=== PATIENT | female | born 1995 | race American Indian/Alaskan Native ===

== ENCOUNTER 2017-04-26 21:57 | Outpatient (CLI) | payer MEDICAID ==
[2017-04-26 22:23] VITALS: BP 115/68
[2017-04-26] MEDS ORDERED: LACTATED RINGERS 500 ML IV ONE (23:04)
== END 2017-04-26 23:32 | disposition home or self-care (01) ==
LOC: TRG 21:57
PROVIDERS: ATTEND Obstetrics & Gynecology
DX: O47.03 False labor before 37 completed weeks of gestation, third trimester (principal); Z3A.36 36 weeks gestation of pregnancy
CPT/HCPCS: J7120

== ENCOUNTER 2017-05-22 12:29 | Inpatient (IN) | payer MEDICAID ==
[2017-05-22] MEDS ORDERED: ePHEDrine SULFATE IV PRN ×2 (13:55→21:02)
[2017-05-22] MEDS ORDERED: MINERAL OIL PO PRN (13:55)
[2017-05-22] MEDS ORDERED: SUBLIMAZE IV PRN (13:55)
[2017-05-22] MEDS ORDERED: NARCAN 0.4 MG/1 ML IV PRN (13:55)
[2017-05-22] MEDS ORDERED: BRETHINE SUB-Q PRN (13:55)
[2017-05-22] MEDS ORDERED: PITOCin/NS 20 UNIT/1000ML DRIP 20 UNITS/1,000 ML BAG IV SCH ×2 (14:00→23:45)
[2017-05-22] MEDS ORDERED: PITOCin/NS 30 UNIT/500ML 30 UNITS/500 ML BAG IV SCH ×2 (14:00)
--- NOTE | 2017-05-22 14:01 | History and Physical Report ---
History of Present Illness Date of examination: 05/22/17 Chief complaint: Labor History of present illness: Pt is a 21yo BF EDC 05/19/17; EGA 40 3/7 weeks presents to L&D complaining of RUC's q 4-5 mins. She received care at [facility] and course has bben unremarkable. She has a history of Preeclampsia and hemorrhage with her previous , however, records are not available and GBS is unknown. Past History Past Medical History: no pertinent history Past Surgical History: no surgical history Social history: no significant social history, single - Obstetrical History Expected Date of Delivery: 05/19/17 Actual Gestation: 40 Week(s) 3 Day(s) : 2 Medications and Allergies Allergies Allergy/AdvReac Type Severity Reaction Status Date / Time No Known Allergies Allergy Unverified 04/26/17 23:03 Review of Systems All systems: negative - Vital Signs Vital signs: Vital Signs Pulse BP 85 123/70 05/22/17 12:47 05/22/17 12:47 Temp Pulse Resp BP Pulse Ox 97.1 F L 81 16 121/81 99 05/22/17 12:56 05/22/17 13:53 05/22/17 12:56 05/22/17 13:46 05/22/17 13:53 - Physical Exam Breasts: Positive: deferred Cardiovascular: Regular rate Lungs: Positive: Clear to auscultation Abdomen: Positive: normal appearance Genitourinary (Female): Positive: normal external genitalia Uterus: Positive: enlarged Extremities: Positive: normal - Obstetrical FHR: category 1 Uterine Contraction Monitor Mode: External Cervical Dilatation: 4 Cervical Effacement Percentage: 90 station: -2 Uterine Contraction Pattern: Regular Uterine Tone Measurement Phase: Contraction Uterine Contraction Intensity: Moderate Results Result Diagrams: 05/22/17 14:42 All other labs normal. Assessment and Plan - Patient Problems (1) 40 weeks gestation of Onset Date: 05/22/17 Current Visit: Yes Status: Acute Plan to address problem: A: IUP @ 40 3/7 weeks in labor Unknown GBS P: Admit to L&D for expectant vaginal delivery IV Ampicillin Obtain records
[2017-05-22] MEDS ORDERED: BRETHINE IVP PRN (14:12)
[2017-05-22] MEDS ORDERED: XYLOCAINE 2% INFILTRATI ONE (15:00)
[2017-05-22 15:01] LABS: Hematocrit 34.4 % (30.3-42.9); Hemoglobin 11.8 gm/dl (10.1-14.3); Mean Corpuscular HGB Conc 34 % (30-34); Mean Corpuscular Hemoglobin 30 pg (28-32); Mean Corpuscular Volume 86 fl (79-97); Platelet Count 108 K/mm3 (140-440); Red Blood Count 4.01 M/mm3 (3.65-5.03); Red Cell Distribution Width 15.1 % (13.2-15.2); White Blood Count 5.9 K/mm3 (4.5-11.0)
[2017-05-22] MEDS: STADOL IV PRN ×2 (15:24→17:45)
[2017-05-22] MEDS: LACTATED RINGERS 1,000 ML IV SCH ×2 (15:26→19:48)
[2017-05-22] MEDS ORDERED: POLYCILLIN/NS 2 GM/100 ML 2 GM/100 ML BAG IV ONE (18:23)
[2017-05-22] MEDS ORDERED: ePHEDrine SULFATE ONE (20:02)
--- NOTE | 2017-05-22 21:02 | Anesthesia Consultation ---
Anesthesia Consult and Med Hx Date of service: 05/22/17 - Airway Anesthetic Teeth Evaluation: Good ROM Head & Neck: Adequate Mental/Hyoid Distance: Adequate Intubation Access Assessment: Probably Good - Pre-Operative Health Status ASA Pre-Surgery Classification: ASA2, Emergency Proposed Anesthetic Plan: Epidural, Spinal - Pulmonary Hx Asthma: No COPD: No Hx Pneumonia: No - Cardiovascular System Hx Hypertension: No - Central Nervous System Hx Seizures: No Hx Psychiatric Problems: No - Endocrine Hx Renal Disease: No Hx End Stage Renal Disease: No Hx Hypothyroidism: No Hx Hyperthyroidism: No - Hematic Hx Anemia: Yes (Iron Pills) Hx Sickle Cell Disease: No - Other Systems Hx Alcohol Use: No - Additional Comments Anesthesia Medical History Comments: Mild thrombocytopenia (109K ). No prior history. Platelet count from 05/22/17 at 14:30
[2017-05-22] MEDS ORDERED: fentaNYL-BUPIV 2 MCG/ML-0.125% 200 MCG/100 ML BAG EPIDURAL SCH (22:00)
[2017-05-22] MEDS ORDERED: CYTOTEC ONE (22:38)
--- NOTE | 2017-05-22 22:58 | Procedure Note ---
OB Delivery Note - Delivery Date of Delivery: 05/22/17 Surgeon: JAKE MARCELO Estimated blood loss: 100cc - Vaginal Delivery presentation: vertex Delivery position: OA Intrapartum events: none Delivery induction: oxytocin Delivery augmentation: rupture of membranes Delivery monitor: external FHT, external uterine Route of delivery: Delivery placenta: manual, uterine exploration Delivery cord: 3 umbilical vessels Episiotomy: none Delivery laceration: none Anesthesia: epidural Delivery comments: delivered OA and placed on Mom's chest for [id number] bonding and delayed cord clamping. - Infant A at 1 minute: 8 at 5 minutes: 9 Gender: Male (3246gms)
[2017-05-22] MEDS ORDERED: LANSINOH TP PRN (23:02)
[2017-05-22] MEDS ORDERED: ZOFRAN IV PRN (23:02)
[2017-05-22] MEDS ORDERED: DULCOLAX PR PRN (23:02)
[2017-05-22] MEDS ORDERED: BENADRYL PO PRN (23:02)
[2017-05-22] MEDS ORDERED: PHENERGAN PO PRN (23:02)
[2017-05-22] MEDS ORDERED: PHENERGAN PR PRN (23:02)
[2017-05-22] MEDS ORDERED: TYLENOL PO PRN (23:02)
[2017-05-22] MEDS ORDERED: TUCKS PAD TP PRN (23:02)
[2017-05-22] MEDS ORDERED: MILK OF MAGNESIA PO PRN (23:02)
[2017-05-22] MEDS ORDERED: SODIUM CHLORIDE FLUSH SYRINGE 10 ML IV NR (23:45)
[2017-05-22] MEDS: MOTRIN PO SCH (23:50)
[2017-05-23] MEDS: MOTRIN PO SCH ×3 (05:38→18:07)
[2017-05-23] MEDS: NORCO 5/325 PO PRN ×2 (05:47→22:00)
[2017-05-23] MEDS ORDERED: M-M-R II VACCINE SUB-Q ONE (06:00)
[2017-05-23] MEDS ORDERED: BOOSTRIX IM ONE (06:00)
[2017-05-23] MEDS: COLACE PO SCH ×2 (09:39→21:27)
[2017-05-23] MEDS: FEOSOL PO SCH ×2 (09:39→21:27)
[2017-05-23] MEDS: PRENATAL VITAMIN PO SCH (09:39)
--- NOTE | 2017-05-23 09:39 | Progress Note ---
Assessment and Plan - Patient Problems (1) 40 weeks gestation of Onset Date: 05/22/17 Current Visit: Yes Status: Resolved (2) (normal spontaneous vaginal delivery) Onset Date: 05/23/17 Current Visit: Yes Status: Resolved Plan to address problem: A: S/P - PPD #1 Doing well P: May go home tomorrow. Subjective - Subjective Date of service: 05/23/17 Principal diagnosis: s/p - PPD #1 Interval history: Pt is feeling well without complaints. Bleeding improved. Patient reports: appetite normal, voiding normally, pain well controlled, ambulating normally [place]: doing well Objective - Vital Signs Latest vital signs: Vital Signs Temp Pulse Pulse Pulse Resp BP BP 05/23/17 08:38 98.0 F 80 20 108/54 05/23/17 00:45 98.3 F 72 16 117/74 05/23/17 00:17 78 117/78 05/23/17 00:02 83 125/80 05/22/17 23:47 88 129/88 05/22/17 23:32 87 130/89 05/22/17 23:17 88 126/89 05/22/17 23:02 95 H 119/82 05/22/17 22:47 88 119/76 05/22/17 22:33 93 H 05/22/17 22:28 89 05/22/17 22:23 84 05/22/17 22:18 85 136/81 05/22/17 22:13 97 H 05/22/17 22:08 85 05/22/17 22:03 83 143/82 05/22/17 21:58 92 H 05/22/17 21:53 81 05/22/17 21:48 84 05/22/17 21:43 79 142/82 05/22/17 21:38 81 124/72 05/22/17 21:37 82 05/22/17 21:33 78 132/75 05/22/17 21:28 76 134/79 05/22/17 21:23 75 136/78 05/22/17 21:17 82 121/58 05/22/17 21:13 86 123/60 05/22/17 21:12 85 05/22/17 21:08 78 136/78 05/22/17 21:03 85 05/22/17 21:02 82 119/60 05/22/17 21:00 73 135/64 05/22/17 20:58 77 137/74 05/22/17 20:57 84 109/71 05/22/17 20:54 76 152/84 05/22/17 20:53 89 05/22/17 20:52 86 116/75 05/22/17 20:50 78 130/78 05/22/17 20:49 52 L 05/22/17 20:48 85 112/70 05/22/17 20:46 82 115/70 05/22/17 20:44 77 121/71 05/22/17 20:43 83 05/22/17 20:42 83 131/80 05/22/17 20:40 88 123/79 05/22/17 20:38 86 123/74 05/22/17 20:33 88 05/22/17 20:28 90 05/22/17 20:23 90 05/22/17 20:18 80 05/22/17 20:17 83 127/69 05/22/17 20:13 90 05/22/17 20:08 89 05/22/17 20:03 87 05/22/17 19:58 80 05/22/17 19:53 83 05/22/17 19:48 84 05/22/17 19:46 88 116/82 05/22/17 19:18 72 126/75 05/22/17 19:13 98.0 F 72 20 126/75 05/22/17 18:48 74 116/69 05/22/17 18:16 75 112/61 05/22/17 17:46 74 107/68 05/22/17 17:38 80 05/22/17 17:33 87 120/79 05/22/17 17:30 45 L 05/22/17 17:28 88 05/22/17 17:26 98.8 F 68 18 128/66 05/22/17 17:23 91 H 05/22/17 17:18 82 120/78 05/22/17 17:13 84 05/22/17 17:12 83 05/22/17 17:05 80 05/22/17 17:03 72 122/80 05/22/17 17:00 77 05/22/17 16:55 71 05/22/17 16:52 94 H 05/22/17 16:50 66 05/22/17 16:48 79 122/81 17 16:45 83 05/22/17 16:40 75 17 16:35 76 17 16:30 72 1517 16:26 81 17 16:25 91 H 17 16:20 76 05/22/17 16:17 75 122/70 05/22/17 16:15 85 05/22/17 16:11 81 05/22/17 16:10 81 05/22/17 16:05 86 05/22/17 16:00 79 05/22/17 15:55 91 H 05/22/17 15:54 16 05/22/17 15:50 84 05/22/17 15:47 88 119/70 05/22/17 15:45 81 05/22/17 15:40 84 05/22/17 15:35 86 05/22/17 15:30 97 H 05/22/17 15:25 88 05/22/17 15:24 90 16 05/22/17 15:20 86 05/22/17 15:17 71 128/77 05/22/17 15:15 80 05/22/17 15:10 87 05/22/17 15:05 85 105/74 05/22/17 15:00 89 05/22/17 14:58 85 109/70 05/22/17 14:44 83 05/22/17 14:18 83 05/22/17 14:15 82 116/82 05/22/17 14:13 82 05/22/17 14:08 83 05/22/17 14:05 78 114/75 05/22/17 14:03 78 05/22/17 13:58 91 H 05/22/17 13:55 80 121/80 05/22/17 13:53 81 05/22/17 13:48 89 05/22/17 13:46 90 121/81 1517 13:43 88 17 13:38 82 17 13:36 85 120/81 1517 13:33 81 17 13:28 92 H 17 13:25 78 116/76 07/15/17 13:23 89 07/15/17 13:18 78 05/22/17 13:13 84 05/22/17 13:08 76 05/22/17 13:03 79 05/22/17 12:58 87 05/22/17 12:56 97.1 F L 86 16 123/70 05/22/17 12:53 82 05/22/17 12:52 89 05/22/17 12:48 84 05/22/17 12:47 85 123/70 Pulse Ox 05/23/17 08:38 05/23/17 00:45 05/23/17 00:17 05/23/17 00:02 05/22/17 23:47 05/22/17 23:32 05/22/17 23:17 05/22/17 23:02 05/22/17 22:47 05/22/17 22:33 99 05/22/17 22:28 97 05/22/17 22:23 99 05/22/17 22:18 100 05/22/17 22:13 100 05/22/17 22:08 100 05/22/17 22:03 100 05/22/17 21:58 100 05/22/17 21:53 98 05/22/17 21:48 99 05/22/17 21:43 100 05/22/17 21:38 05/22/17 21:37 99 05/22/17 21:33 99 05/22/17 21:28 100 05/22/17 21:23 100 05/22/17 21:17 99 05/22/17 21:13 05/22/17 21:12 100 05/22/17 21:08 100 05/22/17 21:03 100 05/22/17 21:02 05/22/17 21:00 05/22/17 20:58 99 05/22/17 20:57 05/22/17 20:54 05/22/17 20:53 100 05/22/17 20:52 05/22/17 20:50 05/22/17 20:49 71 L 05/22/17 20:48 100 05/22/17 20:46 05/22/17 20:44 05/22/17 20:43 100 05/22/17 20:42 05/22/17 20:40 05/22/17 20:38 99 05/22/17 20:33 100 05/22/17 20:28 100 05/22/17 20:23 100 05/22/17 20:18 100 05/22/17 20:17 05/22/17 20:13 99 05/22/17 20:08 100 05/22/17 20:03 99 05/22/17 19:58 100 05/22/17 19:53 99 05/22/17 19:48 98 05/22/17 19:46 05/22/17 19:18 05/22/17 19:13 05/22/17 18:48 05/22/17 18:16 05/22/17 17:46 05/22/17 17:38 98 05/22/17 17:33 99 05/22/17 17:30 93 05/22/17 17:28 96 05/22/17 17:26 05/22/17 17:23 97 05/22/17 17:18 99 05/22/17 17:13 98 05/22/17 17:12 74 L 05/22/17 17:05 98 05/22/17 17:03 05/22/17 17:00 99 05/22/17 16:55 99 05/22/17 16:52 94 05/22/17 16:50 100 05/22/17 16:48 05/22/17 16:45 98 05/22/17 16:40 98 05/22/17 16:35 96 05/22/17 16:30 99 05/22/17 16:26 92 05/22/17 16:25 99 05/22/17 16:20 95 05/22/17 16:17 05/22/17 16:15 96 05/22/17 16:11 94 05/22/17 16:10 97 05/22/17 16:05 97 05/22/17 16:00 95 17 15:55 96 17 15:54 05/22/17 15:50 98 17 15:47 94 17 15:45 97 17 15:40 96 17 15:35 96 17 15:30 97 17 15:25 96 17 15:24 94 07/15/17 15:20 98 05/22/17 15:17 05/22/17 15:15 100 05/22/17 15:10 99 05/22/17 15:05 100 05/22/17 15:00 99 05/22/17 14:58 05/22/17 14:44 100 05/22/17 14:18 99 05/22/17 14:15 05/22/17 14:13 99 05/22/17 14:08 99 05/22/17 14:05 05/22/17 14:03 100 05/22/17 13:58 0 L 05/22/17 13:55 05/22/17 13:53 99 05/22/17 13:48 100 05/22/17 13:46 05/22/17 13:43 100 05/22/17 13:38 99 05/22/17 13:36 05/22/17 13:33 99 05/22/17 13:28 99 05/22/17 13:25 05/22/17 13:23 99 05/22/17 13:18 100 05/22/17 13:13 99 05/22/17 13:08 98 05/22/17 13:03 97 05/22/17 12:58 98 05/22/17 12:56 98 05/22/17 12:53 98 05/22/17 12:52 94 05/22/17 12:48 96 05/22/17 12:47 Intake and Output 05/22/17 05/23/17 05/23/17 22:59 06:59 14:59 Intake Total 1000 120 Output Total 800 Balance 1000 -680 Intake: IV 1000 Lactated Ringers 1,000 ml 1000 @ 125 mls/hr IV DIRECT SYL Rx#:[id number] Oral 120 Output: Urine 800 Void 800 Other: Total, Intake Amount 120 Total, Output Amount 800 Estimated Blood Loss 100 - Exam Breasts: Present: deferred Cardiovascular: Present: Regular rate Lungs: Present: Clear to auscultation Abdomen: Present: normal appearance, soft Uterus: Present: normal, firm, fundal height below umbilicus Extremities: Present: normal - Labs Labs: Abnormal lab results 05/22/17 Range/Units 14:42 Plt Count 108 L (140-440) K/mm3 Laboratory Tests 05/22/17 05/22/17 14:38 14:42 WBC 5.9 RBC 4.01 Hgb 11.8 Hct 34.4 MCV 86 MCH 30 MCHC 34 RDW 15.1 Plt Count 108 L Blood Type AB POSITIVE Antibody Screen TNR KELIN Antibody Screen Negative
[2017-05-23 10:55] LABS: Hematocrit 29.5 % (30.3-42.9)
--- NOTE | 2017-05-23 11:29 | Discharge Summary ---
Providers - Providers Date of Admission: 05/22/17 12:30 Date of discharge: 05/24/17 Attending physician: JAKE MARCELO Primary care physician: JAKE MARCELO Hospitalization Reason for admission: active labor, IUP at term Delivery: Episiotomy: none Laceration: none Other procedures: none complications: none Discharge diagnosis: IUP at term delivered [place] baby: male Hospital course: Unremarkable. Condition at discharge: Good Disposition: DC-01 TO HOME OR SELFCARE - Discharge Diagnoses (1) 40 weeks gestation of Status: Resolved (2) (normal spontaneous vaginal delivery) Status: Resolved Plan - Discharge Medications Prescriptions: Ferrous Sulfate [Feosol 325 MG tab] 325 mg PO BID #60 tablet Ibuprofen [Motrin 600 MG tab] 600 mg PO Q6H #30 tablet Vit-Fe Fumar-FA [ Vitamin] 1 each PO QDAY #30 tablet - Provider Discharge Summary Activity: routine, no sex for 6 weeks, no heavy lifting 4 weeks, no strenuous exercise Diet: routine Instructions: routine Additional instructions: [] Smoking cessation referral if applicable(refer to patient education folder for contact #) [] Refer to [facility] Booklet Call your doctor immediately for: * Fever > 100.5 * Heavy vaginal bleeding ( >1 pad per hour) * Severe persistent headache * Shortness of breath * Reddened, hot, painful area to leg or breast * Drainage or odor from incision. * Keep incision clean and dry at all times and follow doctor's instructions regarding bathing/showering - Follow up plan Follow up: JAKE MARCELO MD [Primary Care Provider] - 6 Weeks
[2017-05-23 15:49] LABS: HIV-1 Antigen p24 Non React (Non React); HIVR-1/2 Ab Non React (Non React)
[2017-05-24] MEDS: MOTRIN PO SCH ×3 (05:35→12:33)
[2017-05-24] MEDS: PRENATAL VITAMIN PO SCH (09:59)
[2017-05-24] MEDS: FEOSOL PO SCH (09:59)
[2017-05-24 17:31] VITALS: BP 108/58
== END 2017-05-24 18:00 | disposition home or self-care (01) | DRG 775 ==
LOC: TRG 12:29 → LD 12:29 → TRG 12:30 → LD 12:30 → OB 05-23 00:46
PROVIDERS: ADMIT Obstetrics & Gynecology; ATTEND Obstetrics & Gynecology
PROC: 10E0XZZ Delivery of Products of Conception, External Approach (ICD-10-PCS; principal; 2017-05-22)
PROC: 3E033VJ Introduction of Other Hormone into Peripheral Vein, Percutaneous Approach (ICD-10-PCS; 2017-05-22)
PROC: 00HU33Z Insertion of Infusion Device into Spinal Canal, Percutaneous Approach (ICD-10-PCS; 2017-05-22)
PROC: 3E0R3CZ (ICD-10-PCS; 2017-05-22)
DX: O80 Encounter for full-term uncomplicated delivery (principal); Z3A.40 40 weeks gestation of pregnancy; Z37.0 Single live birth
CPT/HCPCS: 36415; 85014; 85018; 85027; 86592; 86706; 86762; 86850; 86900; 86901; 87806; 90471; 90715; 99211; A6250; G0463; J0290; J0595; J2590; J7120

== ENCOUNTER 2018-04-04 21:57 | Emergency (ER) | payer MEDICAID, OTHER ==
[2018-04-04 22:50] VITALS: BP 109/65
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
[2018-04-05] MEDS ORDERED: MOTRIN PO ONE (01:00)
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
== END 2018-04-05 02:40 | disposition home or self-care (01) ==
LOC: ED 21:57
DX: M25.532 Pain in left wrist (principal); R22.0 Localized swelling, mass and lump, head; V49.59XA Passenger injured in collision with other motor vehicles in traffic accident, initial encounter; Y93.89 Activity, other specified; Y99.8 Other external cause status; Y92.89 Other specified places as the place of occurrence of the external cause
CPT/HCPCS: 70110; 99283